=== PATIENT | female | born 1975 ===

== ENCOUNTER 2018-11-02 17:24 | Emergency (ER) | payer SELFPAY ==
[2018-11-02 17:34] VITALS: O2SAT 100
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
[2018-11-02 20:15] VITALS: BP 115/79; PULSE 91; RESP 16; TEMP 99
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
== END 2018-11-02 20:32 | disposition home or self-care (01) ==
LOC: C.ER 17:24
DX: M54.9 Dorsalgia, unspecified (principal); T14.8XXA Other injury of unspecified body region, initial encounter; V79.9XXA Bus occupant (driver) (passenger) injured in unspecified traffic accident, initial encounter

== ENCOUNTER 2018-12-22 17:05 | Emergency (ER) | payer SELFPAY ==
[2018-12-22 17:25] VITALS: O2SAT 100
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
[2018-12-22 18:33] VITALS: BP 124/80; PULSE 88; RESP 20; TEMP 98.5
== END 2018-12-22 18:48 | disposition home or self-care (01) ==
LOC: C.ER 17:05
DX: M79.18 Myalgia, other site (principal); M62.838 Other muscle spasm
CPT/HCPCS: 81025; 96372; 99284; J1885